=== PATIENT | female | born 1955 | race Caucasian/White ===

== ENCOUNTER 2019-08-29 11:04 | Observation (INO) | payer BC ==
[~2019-08-29] VITALS: Ht 177.8 cm; Wt 121.1 kg
[~2019-08-29 11:04] MED LIST: ASPI-496 PO; BIOT5CAP3 PO; CARV6.252 PO; CHOL200074 PO; EPINEPHRINE 1 MG/ML, 1ML ONE; FENTANYL PF 250 MCG/5ML ONE; KETOROLAC 60 MG/2 ML ONE; LOSA1TAB19 PO; MIDAZOLAM 1 MG/ML, 2ML ONE; OMEP40CA42 PO; OXYB5TAB10 PO; ROPIvacaine/PF 0.2%, 20 ML ONE; SODIUM CHLORIDE 0.9% 50 ML ONE; TRANEXAMIC ACID 100 MG/ML, 10ML ONE; VANCOMYCIN 1,000 MG ONE
[2019-08-29 11:56] VITALS: BP 163/89
[2019-08-29] MEDS ORDERED: LACTATED RINGERS 1,000 ML IV SCH (11:59)
[2019-08-29] MEDS ORDERED: ACETAMINOPHEN 500 MG TABLET PO ONE (12:00)
[2019-08-29] MEDS ORDERED: GABAPENTIN 300 MG CAPSULE PO ONE (12:00)
[2019-08-29] MEDS ORDERED: GABAPENTIN 300 MG CAPSULE ONE (12:24)
[2019-08-29] MEDS ORDERED: ACETAMINOPHEN 500 MG TABLET ONE (12:24)
[2019-08-29] MEDS ORDERED: OXYcodone 5 MG/5 ML ORAL.SOL UDC PO PRN (12:30)
[2019-08-29] MEDS ORDERED: MEPERIDINE/PF 25MG/ML,1ML IVPush PRN (12:30)
[2019-08-29] MEDS ORDERED: hydrALAzine 20 MG/ML, 1ML IV PRN (12:30)
[2019-08-29] MEDS ORDERED: HYDROmorphone 2 MG/ML, 1ML IVPush PRN ×2 (12:30→16:00)
[2019-08-29] MEDS ORDERED: FENTANYL PF 100 MCG/2ML IV PRN (12:30)
[2019-08-29] MEDS ORDERED: LABETALOL 5MG/ML, 20ML IV PRN (12:30)
[2019-08-29] MEDS ORDERED: HALOPERIDOL 5 MG/ML IV PRN (12:30)
[2019-08-29] MEDS ORDERED: PROMETHAZINE 25 MG/ML, 1ML IV PRN (12:30)
[2019-08-29] MEDS ORDERED: MORPHINE SULFATE 4 MG/ML, 1ML IVPush PRN (12:30)
[2019-08-29] MEDS ORDERED: SODIUM CHLORIDE 0.9% 50 ML ONE (12:40)
[2019-08-29] MEDS ORDERED: ROPIvacaine/PF 0.2%, 20 ML ONE (14:15)
[2019-08-29] MEDS ORDERED: PROPOFOL 10 MG/ML, 20ML ONE (14:16)
[2019-08-29] MEDS ORDERED: DEXAMETHASONE 4 MG/ML, 1ML ONE (14:16)
[2019-08-29] MEDS ORDERED: NEOSTIGMINE 1 MG/ML, 10ML ONE (14:16)
[2019-08-29] MEDS ORDERED: GLYCOPYRROLATE 0.2MG/1ML, 5ML ONE (14:16)
[2019-08-29] MEDS ORDERED: CEFAZOLIN 1,000 MG ONE (14:16)
[2019-08-29] MEDS ORDERED: ONDANSETRON 2MG/ML, 2ML ONE (14:16)
[2019-08-29] MEDS ORDERED: ROCURONIUM 10MG/ML,5ML ONE (14:16)
[2019-08-29] MEDS ORDERED: FENTANYL PF 250 MCG/5ML ONE (14:18)
[2019-08-29] MEDS ORDERED: hydrALAzine 20 MG/ML, 1ML ONE (14:24)
[2019-08-29] MEDS ORDERED: ALUMINUM/MAG/SIMETHICONE 30 ML UDC PO PRN (16:00)
[2019-08-29] MEDS ORDERED: POLYETHYLENE GLYCOL 17 GM PACKET PO PRN (16:00)
[2019-08-29] MEDS ORDERED: MAGNESIUM HYDROXIDE 8%, 30ML UDC PO PRN (16:00)
[2019-08-29] MEDS ORDERED: ACETAMINOPHEN 650 MG/20.3 ML UDC PO PRN (16:00)
[2019-08-29] MEDS ORDERED: PROMETHAZINE 25 MG/ML, 1ML IM PRN (16:00)
[2019-08-29] MEDS ORDERED: PSYLLIUM PACKET PO PRN (16:00)
[2019-08-29] MEDS ORDERED: DIPHENHYDRAMINE 50 MG CAPSULE PO PRN (16:00)
[2019-08-29] MEDS ORDERED: SENNA/DOCUSATE TABLET PO PRN (16:00)
[2019-08-29] MEDS ORDERED: TRANEXAMIC ACID 1,000 MG in SODIUM CHLORIDE 0.9% 100 ML IVPB ONE (16:00)
[2019-08-29] MEDS ORDERED: DIPHENHYDRAMINE 50 MG/ML, 1ML IVPush PRN (16:00)
[2019-08-29] MEDS ORDERED: OXYcodone IR 5MG TABLET PO PRN (16:00)
[2019-08-29] MEDS ORDERED: ONDANSETRON 2MG/ML, 2ML IV PRN (16:00)
[2019-08-29] MEDS ORDERED: ONDANSETRON 4 MG TABLET PO PRN (16:00)
[2019-08-29] MEDS: D5%-0.45NACL+KCL 20MEQ 1,000 ML IV SCH (17:33)
[2019-08-29 19:53] VITALS: BP 128/71
[2019-08-29] MEDS ORDERED: ASPIRIN 81 MG TABLET EC PO SCH (21:00)
[2019-08-29] MEDS: DOCUSATE 100 MG CAPSULE PO SCH (21:42)
[2019-08-29] MEDS: KETOROLAC 30 MG/1 ML IV SCH (21:42)
[2019-08-29] MEDS: CEFAZOLIN PMX 1GM/50ML 50 ML IVPB SCH (21:43)
[2019-08-30] VITALS: BP 144/77
[2019-08-30 04:28] VITALS: BP 154/72
[2019-08-30] MEDS: D5%-0.45NACL+KCL 20MEQ 1,000 ML IV SCH (04:30)
[2019-08-30] MEDS: KETOROLAC 30 MG/1 ML IV SCH (05:37)
[2019-08-30] MEDS ORDERED: OMEPRAZOLE 20 MG CAPSULE.DR PO SCH (06:00)
[2019-08-30] MEDS ORDERED: ASPIRIN 81 MG TABLET EC PO SCH (06:00)
[2019-08-30] MEDS ORDERED: DEXAMETHASONE 4 MG/ML, 1ML IVPush ONE (06:00)
[2019-08-30] MEDS: CEFAZOLIN PMX 1GM/50ML 50 ML IVPB SCH (06:11)
[2019-08-30 07:34] VITALS: BP 162/82
[2019-08-30] MEDS: DOCUSATE 100 MG CAPSULE PO SCH (08:19)
[2019-08-30] MEDS ORDERED: TAMSULOSIN 0.4 MG CAP.ER.24H PO SCH (09:00)
[2019-08-30] MEDS ORDERED: HYDROCHLOROTHIAZIDE 12.5 MG CAPSULE PO SCH (09:00)
[2019-08-30] MEDS ORDERED: CARVEDILOL 6.25 MG TABLET PO SCH (09:00)
[2019-08-30] MEDS ORDERED: LOSARTAN 50MG TABLET PO SCH (09:00)
[2019-08-30 11:30] VITALS: BP 123/64
== END 2019-08-30 11:38 | disposition home or self-care (01) ==
LOC: OUT 11:04 → ORIP 15:43 → 4NE 16:26 → DCLOUNGE 08-30 11:34
PROVIDERS: ADMIT Orthopaedic Surgery; ATTEND Orthopaedic Surgery
DX: M17.11 Unilateral primary osteoarthritis, right knee (principal); E11.9 Type 2 diabetes mellitus without complications; I10 Essential (primary) hypertension; K21.9 Gastro-esophageal reflux disease without esophagitis; Z88.1 Allergy status to other antibiotic agents; Z79.82 Long term (current) use of aspirin; I82.409 Acute embolism and thrombosis of unspecified deep veins of unspecified lower extremity
CPT/HCPCS: 27447; 73560; 96365; 96366; 96375; 96376; 97110; 97161; 97165; C1713; C1776; G0378; J0171; J0360; J0690; J1100; J1885; J2250; J2405; J2704; J2710; J2795; J3010; J3480; J7120; J3370